=== PATIENT | male | born 1965 | race Caucasian/White ===

== ENCOUNTER 2020-12-11 18:38 | Inpatient (IN) | payer OTHER ==
[2020-12-11 19:19] VITALS: BMI 19.1
[2020-12-11] MEDS ORDERED: MAGNESIUM CITRATE 300 ML BOTTLE PO PRN (20:21)
[2020-12-11] MEDS ORDERED: MENTHOL/PHENOL 1 EACH UD MM PRN (20:21)
[2020-12-11] MEDS ORDERED: MAG HYDROX/AL HYDROX/SIMETH 30 ML UNIT-DOSE CUP PO PRN (20:21)
[2020-12-11] MEDS ORDERED: MAGNESIUM HYDROX 2400MG/30ML ORAL SUSPENSION 30 ML CUP PO PRN (20:21)
[2020-12-11] MEDS ORDERED: BISMUTH SUBSALICYLATE 524 MG/30 ML UD PO PRN (20:21)
[2020-12-11] MEDS ORDERED: ONDANSETRON *ODT* 4 MG TABLET SL PRN (20:21)
[2020-12-11] MEDS ORDERED: ACETAMINOPHEN 325 MG TABLET (FP) PO PRN ×2 (20:21)
[2020-12-11] MEDS ORDERED: METHADONE HCL 10 MG TABLET ONE (20:48)
[2020-12-11] MEDS ORDERED: METHADONE HCL 5 MG TABLET ONE (20:49)
[2020-12-11] MEDS: THIAMINE HCL 100 MG TABLET (FP) PO SCH (21:17)
[2020-12-11] MEDS: MELATONIN 5 MG TABLETS PO SCH (21:19)
[2020-12-11] MEDS ORDERED: METHADONE 20 MG, METHADONE 5 MG PO ONE (22:00)
[2020-12-11] MEDS ORDERED: METHADONE HCL 10 MG TABLET (FOR DETOX USE ONLY) PO ONE (22:00)
[2020-12-12] MEDS: NICOTINE POLACRILEX 2 MG GUM BUC PRN ×6 (07:26→22:15)
[2020-12-12] MEDS: PRENATAL VITAMINS W/ FOLIC ACID TABLET (FP) PO SCH (09:06)
[2020-12-12] MEDS: METHOCARBAMOL 500 MG TABLET PO PRN ×2 (09:07→22:17)
[2020-12-12 09:49] LABS: HEMATOCRIT 34.8 % (35.4-49); HEMOGLOBIN 11.9 GM/dL (11.7-16.9); MCH 31.5 pg (25.7-33.7); MEAN CELL VOLUME 92.5 fl (80-96); MEAN PLT VOLUME 8.5 fl (7.5-11.1); PLATELET COUNT 131 K/MM3 (134-434); RBC 3.77 M/mm3 (4.00-5.60); RDW 13.7 % (11.9-15.9); WHITE BLOOD COUNT 2.3 K/mm3 (4.0-10.0)
[2020-12-12 09:54] LABS: ALBUMIN 3.2 g/dl (3.4-5.0); BLOOD UREA NITROGEN 14.6 mg/dL (7-18); CALCIUM 8.2 mg/dL (8.5-10.1)
[2020-12-12 09:59] LABS: BILIRUBIN,TOTAL 0.5 mg/dL (0.2-1); CREATININE 0.7 mg/dL (0.55-1.3); TOT PROT 6.4 g/dl (6.4-8.2)
[2020-12-12] MEDS ORDERED: METHADONE HCL 10 MG TABLET (FOR DETOX USE ONLY) PO ONE (10:00)
[2020-12-12] MEDS: cloNIDine HCL 0.1 MG TABLET PO PRN (17:08)
[2020-12-12] MEDS: MELATONIN 5 MG TABLETS PO SCH (22:15)
[2020-12-12] MEDS: THIAMINE HCL 100 MG TABLET (FP) PO SCH (22:15)
[2020-12-13] MEDS: NICOTINE POLACRILEX 2 MG GUM BUC PRN ×6 (05:50→19:18)
[2020-12-13] MEDS ORDERED: METHADONE HCL 10 MG TABLET (FOR DETOX USE ONLY) ONE (08:38)
[2020-12-13] MEDS ORDERED: METHADONE HCL 5 MG TABLET ONE (08:39)
[2020-12-13] MEDS: PRENATAL VITAMINS W/ FOLIC ACID TABLET (FP) PO SCH (09:16)
[2020-12-13] MEDS: METHOCARBAMOL 500 MG TABLET PO PRN ×2 (09:19→20:58)
[2020-12-13] MEDS: IBUPROFEN 400 MG TABLET (FP) PO PRN ×2 (09:19→20:58)
[2020-12-13] MEDS ORDERED: METHADONE HCL 10 MG TABLET (FOR DETOX USE ONLY) PO ONE (10:00)
[2020-12-13] MEDS ORDERED: METHADONE PO ONE (10:00)
[2020-12-13] MEDS ORDERED: P-EPHED 60MG/TRIPROLIDI 2.5MG TABLET PO PRN (11:15)
[2020-12-13] MEDS: cloNIDine HCL 0.1 MG TABLET PO PRN (20:58)
[2020-12-13] MEDS: MELATONIN 5 MG TABLETS PO SCH (22:37)
[2020-12-13] MEDS: THIAMINE HCL 100 MG TABLET (FP) PO SCH (22:37)
[2020-12-14] MEDS: NICOTINE POLACRILEX 2 MG GUM BUC PRN ×2 (00:36→08:54)
[2020-12-14 06:07] LABS: SARS-CoV-2 NAA Not Detected (Not Detected)
[2020-12-14 08:53] VITALS: BP 154/83; PULSE 70; TEMP 96.2
[2020-12-14] MEDS: PRENATAL VITAMINS W/ FOLIC ACID TABLET (FP) PO SCH (09:43)
[2020-12-14] MEDS: IBUPROFEN 400 MG TABLET (FP) PO PRN (09:44)
[2020-12-14] MEDS ORDERED: METHADONE HCL 10 MG TABLET (FOR DETOX USE ONLY) PO ONE (10:00)
[2020-12-15] MEDS ORDERED: METHADONE HCL 5 MG TABLET PO ONE (10:00)
== END 2020-12-14 10:00 | disposition home or self-care (01) | DRG 773 ==
LOC: YASAS 18:38 → Y3N 20:34
PROVIDERS: ADMIT Allergy & Immunology; ATTEND Allergy & Immunology
PROC: HZ2ZZZZ Detoxification Services for Substance Abuse Treatment (ICD-10-PCS; principal; 2020-12-11)
DX: F11.23 Opioid dependence with withdrawal (principal); F12.20 Cannabis dependence, uncomplicated; F17.210 Nicotine dependence, cigarettes, uncomplicated; M25.511 Pain in right shoulder; M25.551 Pain in right hip; M25.552 Pain in left hip; M54.5 Low back pain; G89.29 Other chronic pain
CPT/HCPCS: 36415; 80053; 85027; 86780; C9803; J0735; U0003; U0005